=== PATIENT | male | born 1965 | race Two or more races ===

== ENCOUNTER 2019-12-17 15:27 | Outpatient (CLI) | payer OTHER ==
[~2019-12-17 15:27] MED LIST: ENALAPRIL MALE2.5 MG PO; LIPITOR20 MG PO; [UNRECOGNIZED DRUG - OTHER] PO
== END 2019-12-17 15:29 | disposition home or self-care (01) ==
LOC: LAB 15:27 → EDSTATUS 12-20 09:15 → CIR.AMB 12-20 09:15
PROVIDERS: ATTEND Surgery
DX: K62.89 Other specified diseases of anus and rectum (principal); K62.5 Hemorrhage of anus and rectum; K64.4 Residual hemorrhoidal skin tags; K61.0 Anal abscess; Z20.828 Contact with and (suspected) exposure to other viral communicable diseases; I10 Essential (primary) hypertension; Z01.810 Encounter for preprocedural cardiovascular examination; Z01.812 Encounter for preprocedural laboratory examination